=== PATIENT | male | born 1945 | race Caucasian/White ===

== ENCOUNTER 2018-12-07 05:19 | Inpatient (IN) ==
[2018-12-06 13:13] LABS: INR 0.9; PT Patient Result 9.7 SECS; Partial Thromboplastin Time 24.4 SECS (0-40)
[2018-12-06 13:26] LABS: Apearance,Urine Slightly Hazy (Clear); Blood, Urine Negative (Negative); Glucose,Urine (UA) Negative (Negative); Hyaline Casts,Urine 19 /LPF (0-3); Ketones,Urine Negative (Negative); Mucus,Urine Occasional /LPF (Occasional); Nitrite,Urine Negative (Negative); Protein,Urine 30 MG/DL; RBC,Urine 1 /HPF (0-4); Squamous Epithelial Cell,Urine Occasional /HPF (0-10); Urine Color Amber (Yellow); Urine Specific Gravity 1.023 (1.001-1.035); Urine Urobilinogen < 2.0 EU/DL (0.2-1.0); WBC,Urine 2 /HPF (0-6)
[2018-12-06 13:27] LABS: Bilirubin,Urine Small mg/dL (Negative)
[~2018-12-07 05:19] MED LIST: PAPAVERINE 60 MG/2 ML VIAL ONE; SODIUM CHLORIDE 0.9% 1,000 ML IV PRN; TISSUE ADHESIVE 1 EACH APPLICATOR TOP ONE; VANCOMYCIN 1,000 MG VIAL ONE
[2018-12-07] MEDS ORDERED: EPINEPHrine 1 MG/ML VIAL ONE (06:24)
[2018-12-07] MEDS ORDERED: MIDAZOLAM 10 MG/2 ML VIAL ONE (06:24)
[2018-12-07] MEDS ORDERED: SUFentanil 250 MCG/5 ML AMP ONE (06:24)
[2018-12-07] MEDS ORDERED: AMINOCAPROIC ACID 5,000 MG/20 ML VIAL ONE (06:25)
[2018-12-07] MEDS ORDERED: PROPOFOL 1,000 MG/100 ML BOTTLE IV ONE (06:25)
[2018-12-07] MEDS: LACTATED RINGERS 1,000 ML IV SCH (06:40)
[2018-12-07] MEDS ORDERED: CEFUROXIME INJ 1,500 MG in SYRINGE 1 EACH IV ONE (07:17)
[2018-12-07 07:48] LABS: ABG Base Excess -1.2 MMOL/L (-2.5-2.5); ABG HCO3 23.5 MMOL/L (20-26); ABG Oxygen Saturation 99.8 % (95-100); ABG PH 7.348 (7.35-7.45); ABG TCO2 22.1 MMOL/L (23-27); Glucose Heart Surgery 115 MG/DL (74-106); Hemoglobin Heart Surgery 11.7 G/DL (14.0-18.0); PH Patient Temp Arterial 7.348; Patient Temperature 37 CELCIUS; Potassium Heart/CVR 4.1 MMOL/L (3.5-5.1); Sodium Heart/CVR 137 MMOL/L (135-145)
[2018-12-07] MEDS ORDERED: CEFUROXIME 1,500 MG VIAL ONE (07:48)
[2018-12-07 08:16] LABS: Apearance,Urine CLEAR (Clear); Bilirubin,Urine Negative (Negative); Blood, Urine Small mg/dL (Negative); Glucose,Urine (UA) Negative (Negative); Hyaline Casts,Urine 1 /LPF (0-3); Ketones,Urine Negative (Negative); Mucus,Urine Occasional /LPF (Occasional); Nitrite,Urine Negative (Negative); Protein,Urine Negative; RBC,Urine 1 /HPF (0-4); Urine Color Yellow (Yellow); Urine Specific Gravity 1.018 (1.001-1.035); Urine Urobilinogen < 2.0 EU/DL (0.2-1.0); WBC,Urine <1 /HPF (0-6)
[2018-12-07 09:03] LABS: Hematocrit Heart Surgery 26.7 PERCENT (42-52); Hemoglobin Heart Surgery 8.6 G/DL (14.0-18.0); PCO2 Patient Temp Venous 41.5 MM HG; PH Patient Temp Venous 7.397; PO2 Patient Temp Venous 41.6 MM HG; Potassium Heart/CVR 5.2 MMOL/L (3.5-5.1); VBG Base Excess 0.8 MEQ/L (0-4); VBG HCO3 24.8 MEQ/L (24-28); VBG Oxygen Saturation 78.9 %; VBG PCO2 43.6 MMHG (41-51); VBG PH 7.383; VBG PO2 44.6 MMHG (17-40)
[2018-12-07 09:30] LABS: Hematocrit Heart Surgery 26.1 PERCENT (42-52); Hemoglobin Heart Surgery 8.4 G/DL (14.0-18.0); PCO2 Patient Temp Venous 35.8 MM HG; PH Patient Temp Venous 7.442; Potassium Heart/CVR 5.3 MMOL/L (3.5-5.1); VBG Base Excess 0.6 MEQ/L (0-4); VBG HCO3 24.7 MEQ/L (24-28); VBG Oxygen Saturation 76.8 %; VBG PCO2 39.5 MMHG (41-51); VBG PH 7.412; VBG PO2 41.3 MMHG (17-40)
[2018-12-07 09:59] LABS: Hematocrit Heart Surgery 26.8 PERCENT (42-52); Hemoglobin Heart Surgery 8.6 G/DL (14.0-18.0); PCO2 Patient Temp Venous 31.5 MM HG; PH Patient Temp Venous 7.487; PO2 Patient Temp Venous 33.8 MM HG; Potassium Heart/CVR 5.2 MMOL/L (3.5-5.1); VBG Base Excess 0.9 MEQ/L (0-4); VBG Oxygen Saturation 78.5 %; VBG PCO2 36.4 MMHG (41-51); VBG PH 7.442; VBG PO2 41.6 MMHG (17-40)
[2018-12-07] MEDS ORDERED: THROMBIN TOPICAL (RECOMBINANT) 5,000 UNIT VIAL TOP ONE (10:51)
[2018-12-07] MEDS ORDERED: ALBUMIN 5% 12.5 GM/250 ML VIAL IV ONE (10:55)
[2018-12-07] MEDS ORDERED: EPINEPHrine 1 MG/10 ML SYRINGE ONE (10:55)
[2018-12-07] MEDS ORDERED: CALCIUM CHLORIDE 1,000 MG/10 ML SYRINGE IV ONE (10:55)
[2018-12-07] MEDS ORDERED: SODIUM BICARBONATE 50 MEQ/50 ML SYRINGE IV ONE ×2 (10:55→11:11)
[2018-12-07] MEDS ORDERED: PHENYLEPHRINE DRIP 40 MG/250 ML PREMIX IV ONE (10:55)
[2018-12-07 10:56] LABS: ABG Base Excess -1.1 MMOL/L (-2.5-2.5); ABG HCO3 23.5 MMOL/L (20-26); ABG PCO2 38.4 MM HG (35-48); ABG PH 7.404 (7.35-7.45); ABG PO2 87.4 MM HG (80-95); ABG TCO2 24.6 MMOL/L (23-27); Glucose Heart Surgery 183 MG/DL (74-106); Hemoglobin Heart Surgery 9.8 G/DL (14.0-18.0); Ionized Calcium Arterial 1.22 MMOL/L (1.21-1.46); PCO2 Patient Temp Arterial 38.4 MMHG; PH Patient Temp Arterial 7.404; PO2 Patient Temp Arterial 87.4 MM HG; Patient Temperature 37 CELCIUS; Potassium Heart/CVR 4.1 MMOL/L (3.5-5.1); Sodium Heart/CVR 132 MMOL/L (135-145)
[2018-12-07] MEDS ORDERED: MANNITOL 100 GM/500 ML BAG IV ONE (11:10)
[2018-12-07] MEDS ORDERED: PROTAMINE SULFATE 250 MG/25 ML VIAL IV ONE (11:11)
[2018-12-07] MEDS ORDERED: methylPREDNISolone SOD SUC 1,000 MG/8 ML VIAL ONE (11:11)
[2018-12-07] MEDS ORDERED: DEXTROSE 5% KCL 20 MEQ 20 MEQ/1,000 ML BAG IV ONE (11:11)
[2018-12-07] MEDS ORDERED: MAGNESIUM SULFATE 10 GM/20 ML VIAL IV ONE (11:11)
[2018-12-07] MEDS ORDERED: ALBUMIN 25% 25 GM/100 ML VIAL IV ONE (11:11)
[2018-12-07] MEDS ORDERED: HEPARIN 10,000 UNIT/10 ML VIAL ONE (11:11)
[2018-12-07] MEDS ORDERED: FUROSEMIDE 20 MG/2 ML VIAL ONE (11:12)
[2018-12-07] MEDS ORDERED: INSULIN REGULAR 100 UNIT/ML IV PRN (11:54)
[2018-12-07] MEDS ORDERED: MAGNESIUM SULF RIDER 4 GM in PREMIX 1 EACH IV PRN (11:54)
[2018-12-07] MEDS ORDERED: CALCIUM CHLORIDE 1,000 MG/10 ML SYRINGE IV PRN (11:54)
[2018-12-07] MEDS ORDERED: CHLORHEXIDINE 4% SOLN 118 ML BOTTLE TOP PRN (11:54)
[2018-12-07] MEDS ORDERED: MIDAZOLAM 2 MG/2 ML VIAL IV PRN (11:54)
[2018-12-07] MEDS ORDERED: ONDANSETRON 4 MG/2 ML VIAL IV PRN (11:54)
[2018-12-07] MEDS ORDERED: DEXTROSE 50% 25 GM/50 ML SYRINGE IV PRN ×2 (11:54)
[2018-12-07] MEDS ORDERED: ACETAMINOPHEN 650 MG SUPP RECTAL PRN (11:54)
[2018-12-07] MEDS ORDERED: POTASSIUM CHLORIDE RIDER 10 MEQ in PREMIX 1 EACH IV PRN (11:54)
[2018-12-07] MEDS ORDERED: MORPHINE 4 MG/1 ML VIAL IV PRN (11:54)
[2018-12-07] MEDS ORDERED: INSULIN REGULAR DRIP 100 ML IV SCH (12:00)
[2018-12-07 12:25] LABS: ABG Base Excess -2.9 MMOL/L (-2.5-2.5); ABG PCO2 39.7 MM HG (35-48); ABG PH 7.358 (7.35-7.45); ABG TCO2 20.7 MMOL/L (23-27); Glucose Heart Surgery 161 MG/DL (74-106); Hematocrit Heart Surgery 27.1 PERCENT (42-52); Hemoglobin Heart Surgery 8.7 G/DL (14.0-18.0); Potassium Heart/CVR 3.6 MMOL/L (3.5-5.1)
[2018-12-07] MEDS ORDERED: CALCIUM CHLORIDE 1,000 MG/10 ML VIAL IV ONE (12:27)
[2018-12-07] MEDS ORDERED: VECURONIUM 10 MG VIAL IV ONE (12:28)
[2018-12-07] MEDS ORDERED: LACTATED RINGERS 3,000 ML IV ONE (12:28)
[2018-12-07] MEDS ORDERED: SEVOFLURANE 1 UNIT/15 MINUTE INH ONE (12:28)
[2018-12-07] MEDS ORDERED: SODIUM CHLORIDE 0.9% 100 ML IV ONE (12:28)
[2018-12-07] MEDS ORDERED: SODIUM CHLORIDE 0.9% 250 ML IV ONE (12:28)
[2018-12-07] MEDS ORDERED: ETOMIDATE 40 MG/20 ML VIAL IV ONE (12:28)
[2018-12-07 12:32] LABS: Basophils % 0.1 % (0.0-0.8); Eosinophils % 0.2 % (0.00-10.9); Hematocrit 25.5 VOL% (42.0-52.0); Hemoglobin 8.2 GM/DL (14.0-18.0); Immature Granulocytes Absolute 0.08 #; Lymphocytes # 1.1 10*3/uL (1.4-4.0); Lymphocytes % 13.2 % (21.2-54.2); Mean Corpuscular HGB Conc 32.2 GM/DL (32-36); Mean Corpuscular Hemoglobin 30 PG (27-34); Mean Corpuscular Volume 91.7 FL (87-102); Mean Platelet Volume 9.5 FL (9.6-12.0); Monocytes # 0.3 10*3/uL (0.11-0.8); Monocytes % 4.1 % (1.7-12.7); Neutrophils # 6.8 10*3/uL (1.4-7.4); Neutrophils % 81.4 % (38.7-73.9); Platelet Count 132 T/CUMM (130-400); Red Blood Count 2.78 MC/CUMM (3.8-5.5); Red Cell Distribution Width 12.7 % (9.3-17.3); White Blood Count 8.3 T/CUMM (4-12)
[2018-12-07] MEDS ORDERED: PHENYLEPHRINE DRIP 20 MG/250 ML PREMIX IV ONE (12:36)
[2018-12-07] MEDS ORDERED: PHENYLEPHRINE 1 MG/10 ML SYRINGE IV ONE (12:36)
[2018-12-07] MEDS: SODIUM CHLORIDE 0.45% 1,000 ML IV SCH ×2 (12:37→12:38)
[2018-12-07] MEDS: ALBUMIN 5% 12.5 GM in PREMIX 1 EACH IV PRN ×4 (12:38→14:26)
[2018-12-07] MEDS: SODIUM CHLORIDE 0.9% 250 ML IV PRN ×4 (12:39→14:56)
[2018-12-07 12:40] LABS: INR 1.1; PT Patient Result 11.6 SECS; Partial Thromboplastin Time 31.5 SECS (0-40)
[2018-12-07] MEDS ORDERED: PHENYLEPHRINE DRIP 40 MG/250 ML PREMIX IV PRN (12:40)
[2018-12-07 12:50] LABS: Blood Urea Nitrogen 29 MG/DL (7-18); Calcium 8.3 MG/DL (8.5-10.1); Glucose 148 MG/DL (74-106); Osmolality,Calculated 283.7 MOS/KG (273-304); Potassium 3.6 MMOL/L (3.5-5.1); Sodium 138 MMOL/L (136-145)
[2018-12-07] MEDS: POTASSIUM CHLORIDE RIDER 20 MEQ in PREMIX 1 EACH IV PRN ×2 (13:03→13:48)
[2018-12-07 13:43] LABS: Eosinophils 1 % (0-10); Lymphocytes 16 % (20-55); Platelet Estimate Normal; Segmented Neutrophils 83 % (50-85); Total Cells Counted 100
[2018-12-07 13:44] LABS: Hypochromasia Slight
[2018-12-07 14:16] LABS: Hematocrit 25.6 VOL% (42.0-52.0); Hemoglobin 8.3 GM/DL (14.0-18.0)
[2018-12-07] MEDS ORDERED: CALCIUM GLUCONATE 1,000 MG/10 ML VIAL IV ONE (14:43)
[2018-12-07] MEDS ORDERED: CALCIUM GLUCONATE 1,000 MG in SODIUM CHLORIDE 0.9% 100 ML IV ONE (15:00)
[2018-12-07 16:16] LABS: ABG Base Excess -2.1 MMOL/L (-2.5-2.5); ABG HCO3 23.9 MMOL/L (20-26); ABG Oxygen Saturation 97.1 % (95-100); ABG PCO2 47.1 MM HG (35-48); ABG PH 7.323 (7.35-7.45); ABG PO2 110.7 MM HG (80-95); ABG TCO2 25.3 MMOL/L (23-27); Glucose Heart Surgery 182 MG/DL (74-106); Hemoglobin Heart Surgery 8.4 G/DL (14.0-18.0); Potassium Heart/CVR 5.1 MMOL/L (3.5-5.1)
[2018-12-07] MEDS ORDERED: ASPIRIN 325 MG TABLET PO ONE (16:23)
[2018-12-07] MEDS: NEOMYCIN/POLYMYXIN/BACITRACIN OINT 0.9 GM PACK TOP SCH (16:50)
[2018-12-07] MEDS: MORPHINE 10 MG/1 ML VIAL IV PRN ×2 (19:23→22:11)
[2018-12-07] MEDS: cefOXitin 2,000 MG in SYRINGE 1 EACH IV SCH (21:40)
[2018-12-07] MEDS: CHLORHEXIDINE 0.12% ORAL RINSE 60 ML BOTTLE SWISH/SPIT SCH (21:40)
[2018-12-08] MEDS: SODIUM CHLORIDE 0.45% 1,000 ML IV SCH ×2 (02:33→10:42)
[2018-12-08] MEDS: cefOXitin 2,000 MG in SYRINGE 1 EACH IV SCH ×2 (02:34→10:14)
[2018-12-08 04:23] LABS: ABG Base Excess -1.3 MMOL/L (-2.5-2.5); ABG HCO3 23.5 MMOL/L (20-26); ABG Oxygen Saturation 94.8 % (95-100); ABG PCO2 39.7 MM HG (35-48); ABG PH 7.391 (7.35-7.45); ABG PO2 78.7 MM HG (80-95); ABG TCO2 24.8 MMOL/L (23-27)
[2018-12-08 04:33] LABS: Basophils % 0.1 % (0.0-0.8); Hematocrit 24.6 VOL% (42.0-52.0); Immature Granulocytes % 0.3 %; Immature Granulocytes Absolute 0.04 #; Lymphocytes # 1.4 10*3/uL (1.4-4.0); Lymphocytes % 11.5 % (21.2-54.2); Mean Corpuscular HGB Conc 32.5 GM/DL (32-36); Mean Corpuscular Hemoglobin 30 PG (27-34); Mean Corpuscular Volume 91.8 FL (87-102); Mean Platelet Volume 9.6 FL (9.6-12.0); Monocytes # 0.9 10*3/uL (0.11-0.8); Monocytes % 7.4 % (1.7-12.7); Neutrophils # 9.6 10*3/uL (1.4-7.4); Neutrophils % 80.7 % (38.7-73.9); Platelet Count 129 T/CUMM (130-400); Red Blood Count 2.68 MC/CUMM (3.8-5.5); Red Cell Distribution Width 13.2 % (9.3-17.3)
[2018-12-08 04:52] LABS: Calcium 8.2 MG/DL (8.5-10.1); Osmolality,Calculated 284.5 MOS/KG (273-304); Potassium 4.4 MMOL/L (3.5-5.1)
[2018-12-08] MEDS: POTASSIUM CHLORIDE RIDER 20 MEQ in PREMIX 1 EACH IV PRN (05:02)
[2018-12-08] MEDS: MAGNESIUM SULF RIDER 2 GM in PREMIX 1 EACH IV PRN ×2 (05:30→10:32)
[2018-12-08] MEDS: NEOMYCIN/POLYMYXIN/BACITRACIN OINT 0.9 GM PACK TOP SCH ×2 (07:30→14:09)
[2018-12-08] MEDS: LACTATED RINGERS 1,000 ML IV SCH (08:39)
[2018-12-08] MEDS ORDERED: ASPIRIN EC 81 MG TABLET PO SCH (09:00)
[2018-12-08] MEDS ORDERED: PANTOPRAZOLE 40 MG VIAL IV SCH (09:00)
[2018-12-08] MEDS ORDERED: SCOPOLAMINE 1.5 MG PATCH TRANSDERM PRN (09:34)
[2018-12-08] MEDS: CHLORHEXIDINE 0.12% ORAL RINSE 60 ML BOTTLE SWISH/SPIT SCH ×2 (09:42→22:42)
[2018-12-08] MEDS ORDERED: FUROSEMIDE 40 MG/4 ML VIAL IV ONE (09:54)
[2018-12-08] MEDS: FUROSEMIDE 40 MG TABLET PO SCH (10:16)
[2018-12-08] MEDS: ASPIRIN EC 325 MG TABLET PO SCH (10:16)
[2018-12-08] MEDS: DULoxetine 30 MG CAPSULE PO SCH (10:16)
[2018-12-08] MEDS: CARVEDILOL 6.25 MG TABLET PO SCH (10:17)
[2018-12-08] MEDS: PANTOPRAZOLE 40 MG TABLET PO SCH ×2 (10:17→21:22)
[2018-12-08] MEDS ORDERED: INSULIN REGULAR 100 UNIT/ML SUBCUT SCH (12:00)
[2018-12-08] MEDS: MORPHINE 10 MG/1 ML VIAL IV PRN (12:52)
[2018-12-08] MEDS: DICLOFENAC SODIUM PO SCH ×2 (15:20→21:23)
[2018-12-08] MEDS: MISOPROSTOL PO SCH ×2 (15:20→21:23)
[2018-12-08] MEDS: BACITRACIN OINT 0.9 GM PACK TOP SCH (17:19)
[2018-12-08] MEDS ORDERED: AMIODARONE INJ 150 MG in DEXTROSE 5% 100 ML IV ONE ×2 (17:49→20:15)
[2018-12-08] MEDS ORDERED: AMIODARONE INJ 450 MG in DEXTROSE 5% 241 ML IV SCH (18:00)
[2018-12-08] MEDS ORDERED: METOPROLOL TARTRATE 5 MG/5 ML VIAL IV ONE (20:15)
[2018-12-08] MEDS: ATORVASTATIN 40 MG TABLET PO SCH (21:22)
[2018-12-08] MEDS: AMITRIPTYLINE 75 MG TABLET PO SCH (21:22)
[2018-12-08 23:48] LABS: Basophils # 0.1 10*3/uL (0.0-0.2); Basophils % 0.2 % (0.0-0.8); Hematocrit 29.5 VOL% (42.0-52.0); Hemoglobin 9.6 GM/DL (14.0-18.0); Immature Granulocytes % 0.7 %; Immature Granulocytes Absolute 0.21 #; Lymphocytes # 4.5 10*3/uL (1.4-4.0); Lymphocytes % 15.1 % (21.2-54.2); Mean Corpuscular HGB Conc 32.5 GM/DL (32-36); Mean Corpuscular Hemoglobin 30 PG (27-34); Mean Corpuscular Volume 92.5 FL (87-102); Mean Platelet Volume 10.3 FL (9.6-12.0); Monocytes # 3.3 10*3/uL (0.11-0.8); Monocytes % 11.1 % (1.7-12.7); Neutrophils # 21.7 10*3/uL (1.4-7.4); Neutrophils % 72.9 % (38.7-73.9); Platelet Count 217 T/CUMM (130-400); Red Blood Count 3.19 MC/CUMM (3.8-5.5); Red Cell Distribution Width 13.9 % (9.3-17.3); White Blood Count 29.8 T/CUMM (4-12)
[2018-12-09 00:11] LABS: Albumin 3.8 G/DL (3.4-5.0); Bilirubin,Total 0.6 MG/DL (0.2-1.0); Calcium 8.2 MG/DL (8.5-10.1); Osmolality,Calculated 285.1 MOS/KG (273-304); Potassium 5.1 MMOL/L (3.5-5.1); Total Protein 6.5 G/DL (6.4-8.3)
[2018-12-09 01:47] LABS: Lymphocytes 18 % (20-55); Metamyelocytes 1 %; Platelet Estimate Normal; Segmented Neutrophils 79 % (50-85); Total Cells Counted 100
[2018-12-09] MEDS: AMIODARONE INJ 450 MG in DEXTROSE 5% 241 ML IV SCH ×2 (03:45→14:48)
[2018-12-09 04:43] LABS: Basophils % 0.1 % (0.0-0.8); Eosinophils % 0.1 % (0.00-10.9); Hemoglobin 8.8 GM/DL (14.0-18.0); Immature Granulocytes % 0.4 %; Immature Granulocytes Absolute 0.08 #; Lymphocytes # 2.5 10*3/uL (1.4-4.0); Lymphocytes % 14.2 % (21.2-54.2); Mean Corpuscular HGB Conc 32.6 GM/DL (32-36); Mean Corpuscular Hemoglobin 30 PG (27-34); Mean Corpuscular Volume 91.2 FL (87-102); Mean Platelet Volume 9.9 FL (9.6-12.0); Monocytes # 1.8 10*3/uL (0.11-0.8); Monocytes % 10.2 % (1.7-12.7); Neutrophils # 13.4 10*3/uL (1.4-7.4); Platelet Count 148 T/CUMM (130-400); Red Blood Count 2.96 MC/CUMM (3.8-5.5); Red Cell Distribution Width 13.7 % (9.3-17.3); White Blood Count 17.8 T/CUMM (4-12)
[2018-12-09 05:06] LABS: Calcium 8.3 MG/DL (8.5-10.1)
[2018-12-09] MEDS: LACTATED RINGERS 1,000 ML IV SCH (05:59)
[2018-12-09] MEDS: LEVOTHYROXINE 175 MCG TABLET PO SCH (06:40)
[2018-12-09] MEDS: LIOTHYRONINE 25 MCG TABLET PO SCH (06:40)
[2018-12-09] MEDS: DICLOFENAC SODIUM PO SCH ×2 (10:23→22:17)
[2018-12-09] MEDS: MISOPROSTOL PO SCH ×2 (10:23→22:17)
[2018-12-09] MEDS: BACITRACIN OINT 0.9 GM PACK TOP SCH (10:24)
[2018-12-09] MEDS: PANTOPRAZOLE 40 MG TABLET PO SCH ×2 (10:24→21:23)
[2018-12-09] MEDS: CHLORHEXIDINE 0.12% ORAL RINSE 60 ML BOTTLE SWISH/SPIT SCH ×2 (10:24→22:18)
[2018-12-09] MEDS: ASPIRIN EC 325 MG TABLET PO SCH (10:24)
[2018-12-09] MEDS: FUROSEMIDE 40 MG TABLET PO SCH (10:24)
[2018-12-09] MEDS: DULoxetine 30 MG CAPSULE PO SCH (10:24)
[2018-12-09] MEDS: CARVEDILOL 6.25 MG TABLET PO SCH (10:24)
[2018-12-09] MEDS: AMIODARONE 200 MG TABLET PO SCH ×2 (10:31→21:23)
[2018-12-09] MEDS: CARVEDILOL 3.125 MG TABLET PO SCH (21:22)
[2018-12-09] MEDS: AMITRIPTYLINE 75 MG TABLET PO SCH (21:23)
[2018-12-09] MEDS: ATORVASTATIN 40 MG TABLET PO SCH (21:23)
[2018-12-10 04:26] LABS: Basophils % 0.2 % (0.0-0.8); Eosinophils # 0.1 10*3/uL (0.0-0.87); Eosinophils % 0.6 % (0.00-10.9); Hematocrit 25.6 VOL% (42.0-52.0); Hemoglobin 8.3 GM/DL (14.0-18.0); Immature Granulocytes % 0.6 %; Immature Granulocytes Absolute 0.08 #; Lymphocytes # 2.6 10*3/uL (1.4-4.0); Lymphocytes % 19.7 % (21.2-54.2); Mean Corpuscular HGB Conc 32.4 GM/DL (32-36); Mean Corpuscular Hemoglobin 30 PG (27-34); Mean Corpuscular Volume 91.8 FL (87-102); Mean Platelet Volume 10.3 FL (9.6-12.0); Monocytes # 1.3 10*3/uL (0.11-0.8); Monocytes % 9.7 % (1.7-12.7); Neutrophils # 9.1 10*3/uL (1.4-7.4); Neutrophils % 69.2 % (38.7-73.9); Platelet Count 121 T/CUMM (130-400); Red Blood Count 2.79 MC/CUMM (3.8-5.5); Red Cell Distribution Width 13.4 % (9.3-17.3); White Blood Count 13.2 T/CUMM (4-12)
[2018-12-10 04:53] LABS: Calcium 8.1 MG/DL (8.5-10.1); Osmolality,Calculated 293.5 MOS/KG (273-304); Potassium 4.4 MMOL/L (3.5-5.1)
[2018-12-10] MEDS: AMIODARONE INJ 450 MG in DEXTROSE 5% 241 ML IV SCH (06:20)
[2018-12-10] MEDS: LEVOTHYROXINE 175 MCG TABLET PO SCH (06:20)
[2018-12-10] MEDS: LACTATED RINGERS 1,000 ML IV SCH (06:20)
[2018-12-10] MEDS: LIOTHYRONINE 25 MCG TABLET PO SCH (06:20)
[2018-12-10] MEDS: DULoxetine 30 MG CAPSULE PO SCH (08:58)
[2018-12-10] MEDS: ASPIRIN EC 325 MG TABLET PO SCH (08:58)
[2018-12-10] MEDS: PANTOPRAZOLE 40 MG TABLET PO SCH ×2 (08:58→22:30)
[2018-12-10] MEDS: AMIODARONE 200 MG TABLET PO SCH ×2 (08:58→22:30)
[2018-12-10] MEDS: CARVEDILOL 3.125 MG TABLET PO SCH ×2 (08:58→22:30)
[2018-12-10] MEDS: FUROSEMIDE 40 MG TABLET PO SCH (08:58)
[2018-12-10] MEDS: DICLOFENAC SODIUM PO SCH ×2 (08:59→22:30)
[2018-12-10] MEDS: MISOPROSTOL PO SCH ×2 (08:59→22:30)
[2018-12-10] MEDS: BACITRACIN OINT 0.9 GM PACK TOP SCH (09:01)
[2018-12-10] MEDS: CHLORHEXIDINE 0.12% ORAL RINSE 60 ML BOTTLE SWISH/SPIT SCH ×2 (09:01→22:30)
[2018-12-10] MEDS ORDERED: SODIUM CHLORIDE 0.9% 1,000 ML IV PRN (15:28)
[2018-12-10] MEDS ORDERED: FUROSEMIDE 40 MG/4 ML VIAL IV ONE (15:30)
[2018-12-10] MEDS: dilTIAZem Drip 125 MG/125 ML PREMIX IV SCH (21:05)
[2018-12-10 21:39] LABS: Hematocrit 31.4 VOL% (42.0-52.0)
[2018-12-10 21:41] LABS: Hemoglobin 10.2 GM/DL (14.0-18.0)
[2018-12-10] MEDS: AMITRIPTYLINE 75 MG TABLET PO SCH (22:30)
[2018-12-10] MEDS: ATORVASTATIN 40 MG TABLET PO SCH (22:30)
[2018-12-11] MEDS: dilTIAZem Drip 125 MG/125 ML PREMIX IV SCH (03:00)
[2018-12-11] MEDS ORDERED: FUROSEMIDE 40 MG/4 ML VIAL IV ONE (04:00)
[2018-12-11 04:20] LABS: Basophils % 0.3 % (0.0-0.8); Eosinophils # 0.2 10*3/uL (0.0-0.87); Hematocrit 27.9 VOL% (42.0-52.0); Hemoglobin 8.9 GM/DL (14.0-18.0); Immature Granulocytes % 0.4 %; Immature Granulocytes Absolute 0.05 #; Lymphocytes # 3.4 10*3/uL (1.4-4.0); Lymphocytes % 28.7 % (21.2-54.2); Mean Corpuscular HGB Conc 31.9 GM/DL (32-36); Mean Corpuscular Hemoglobin 29 PG (27-34); Mean Corpuscular Volume 92.1 FL (87-102); Mean Platelet Volume 9.9 FL (9.6-12.0); Monocytes # 1.2 10*3/uL (0.11-0.8); Monocytes % 9.9 % (1.7-12.7); Neutrophils % 58.7 % (38.7-73.9); Platelet Count 129 T/CUMM (130-400); Red Blood Count 3.03 MC/CUMM (3.8-5.5); Red Cell Distribution Width 13.8 % (9.3-17.3); White Blood Count 11.9 T/CUMM (4-12)
[2018-12-11 04:35] LABS: Osmolality,Calculated 295.5 MOS/KG (273-304); Potassium 4.1 MMOL/L (3.5-5.1)
[2018-12-11] MEDS: LIOTHYRONINE 25 MCG TABLET PO SCH (06:42)
[2018-12-11] MEDS: LEVOTHYROXINE 175 MCG TABLET PO SCH (06:42)
[2018-12-11] MEDS ORDERED: PNEUMOCOCCAL VACCINE (13 VALENT) 0.5 ML SYRINGE IM ONE (09:00)
[2018-12-11] MEDS ORDERED: INFLUENZA VIRUS VACCINE 0.5 ML SYRINGE IM ONE (09:00)
[2018-12-11] MEDS: FUROSEMIDE 40 MG TABLET PO SCH (09:26)
[2018-12-11] MEDS: CARVEDILOL 3.125 MG TABLET PO SCH ×2 (09:27→20:44)
[2018-12-11] MEDS: DULoxetine 30 MG CAPSULE PO SCH (09:27)
[2018-12-11] MEDS: ASPIRIN EC 325 MG TABLET PO SCH (09:28)
[2018-12-11] MEDS: AMIODARONE 200 MG TABLET PO SCH ×2 (09:28→20:44)
[2018-12-11] MEDS: CHLORHEXIDINE 0.12% ORAL RINSE 60 ML BOTTLE SWISH/SPIT SCH ×2 (09:29→21:48)
[2018-12-11] MEDS: DICLOFENAC SODIUM PO SCH ×2 (09:29→20:49)
[2018-12-11] MEDS: PANTOPRAZOLE 40 MG TABLET PO SCH ×2 (09:29→20:44)
[2018-12-11] MEDS: MISOPROSTOL PO SCH ×2 (09:29→20:49)
[2018-12-11] MEDS: BACITRACIN OINT 0.9 GM PACK TOP SCH (09:54)
[2018-12-11 10:23] LABS: Free T4 (Free Thyroxine) 1.48 NG/DL (0.76-1.46); Thyroid Stimulating Hormone 0.019 uIU/ml (0.358-3.74)
[2018-12-11] MEDS: DILTIAZEM 30 MG TABLET PO SCH ×3 (12:33→20:44)
[2018-12-11] MEDS: FERROUS SULFATE 325 MG TABLET PO SCH ×2 (14:52→20:44)
[2018-12-11] MEDS: ASCORBIC ACID 500 MG TABLET PO SCH (20:44)
[2018-12-11] MEDS: AMITRIPTYLINE 75 MG TABLET PO SCH (20:44)
[2018-12-11] MEDS: MAGNESIUM OXIDE 400 MG TABLET PO SCH (20:44)
[2018-12-11] MEDS: ATORVASTATIN 40 MG TABLET PO SCH (20:44)
[2018-12-12 03:38] LABS: Basophils % 0.4 % (0.0-0.8); Eosinophils # 0.3 10*3/uL (0.0-0.87); Eosinophils % 2.9 % (0.00-10.9); Hematocrit 26.8 VOL% (42.0-52.0); Hemoglobin 8.6 GM/DL (14.0-18.0); Immature Granulocytes % 0.7 %; Immature Granulocytes Absolute 0.07 #; Lymphocytes # 3.2 10*3/uL (1.4-4.0); Lymphocytes % 33.3 % (21.2-54.2); Mean Corpuscular HGB Conc 32.1 GM/DL (32-36); Mean Corpuscular Hemoglobin 30 PG (27-34); Mean Corpuscular Volume 92.7 FL (87-102); Mean Platelet Volume 9.8 FL (9.6-12.0); Monocytes # 0.9 10*3/uL (0.11-0.8); Monocytes % 9.3 % (1.7-12.7); Neutrophils # 5.2 10*3/uL (1.4-7.4); Neutrophils % 53.4 % (38.7-73.9); Platelet Count 127 T/CUMM (130-400); Red Blood Count 2.89 MC/CUMM (3.8-5.5); White Blood Count 9.7 T/CUMM (4-12)
[2018-12-12 04:11] LABS: Calcium 7.9 MG/DL (8.5-10.1); Osmolality,Calculated 298.4 MOS/KG (273-304); Potassium 4.1 MMOL/L (3.5-5.1)
[2018-12-12] MEDS: LEVOTHYROXINE 175 MCG TABLET PO SCH (06:16)
[2018-12-12] MEDS: LIOTHYRONINE 25 MCG TABLET PO SCH (06:16)
[2018-12-12] MEDS: AMIODARONE 200 MG TABLET PO SCH (09:47)
[2018-12-12] MEDS: ASPIRIN EC 325 MG TABLET PO SCH (09:48)
[2018-12-12] MEDS: DILTIAZEM 30 MG TABLET PO SCH (09:48)
[2018-12-12] MEDS: CARVEDILOL 3.125 MG TABLET PO SCH (09:48)
[2018-12-12] MEDS: DULoxetine 30 MG CAPSULE PO SCH (09:48)
[2018-12-12] MEDS: MAGNESIUM OXIDE 400 MG TABLET PO SCH (09:48)
[2018-12-12] MEDS: ASCORBIC ACID 500 MG TABLET PO SCH (09:49)
[2018-12-12] MEDS: CHLORHEXIDINE 0.12% ORAL RINSE 60 ML BOTTLE SWISH/SPIT SCH (09:49)
[2018-12-12] MEDS: BACITRACIN OINT 0.9 GM PACK TOP SCH (09:49)
[2018-12-12] MEDS: PANTOPRAZOLE 40 MG TABLET PO SCH (09:49)
[2018-12-12] MEDS: FUROSEMIDE 40 MG TABLET PO SCH (09:49)
[2018-12-12] MEDS: MISOPROSTOL PO SCH (09:49)
[2018-12-12] MEDS: FERROUS SULFATE 325 MG TABLET PO SCH ×2 (09:49→14:12)
[2018-12-12] MEDS: DICLOFENAC SODIUM PO SCH (09:49)
[2018-12-12] MEDS ORDERED: INFLUENZA VIRUS VACCINE 0.5 ML SYRINGE IM ONE (11:46)
[2018-12-12 12:35] VITALS: BP 114/63
[2018-12-12] MEDS ORDERED: DILTIAZEM CD 120 MG CAPSULE PO SCH (13:00)
== END 2018-12-12 15:30 | disposition swing bed (61) | DRG 220 ==
LOC: N.SDSINP 05:19 → N.CVR 09:40 → N.ICU 12-08 07:57 → N.TELES 12-08 17:05
PROVIDERS: ADMIT Thoracic Surgery (Cardiothoracic Vascular Surgery); ATTEND Thoracic Surgery (Cardiothoracic Vascular Surgery)
PROC: CABGAVR (ICD-10-PCS; 2018-12-07 06:50)